=== PATIENT | male | born 1960 | race Caucasian/White ===

== ENCOUNTER 2017-02-10 18:01 | Inpatient (IN) | payer OTHER ==
[~2017-02-10] VITALS: Ht 185.4 cm; Wt 86.9 kg
[2017-02-10 18:47] VITALS: PULSE 81
[2017-02-10 19:44] VITALS: BP 134/74; RESP 18
[2017-02-10 20:00] VITALS: Ht 185.4 cm; Wt 86.9 kg
[2017-02-10 20:18] VITALS: PULSE 76
[2017-02-11] VITALS (13 sets, daily range): BP systolic 116–140; BP diastolic 65–81; PULSE 62–82; RESP 16–19
[2017-02-11] MEDS ORDERED: ALBUTEROL/IPRATROPIUM (NEB) 3 ML AMP HHN PRN (04:30)
[2017-02-11] MEDS ORDERED: morphine 2 MG INJ IV PRN (04:30)
[2017-02-11] MEDS ORDERED: NACL 0.9% 3 ML SYG IV SCH (04:30)
[2017-02-11] MEDS ORDERED: ONDANSETRON 4 MG INJ IV PRN (04:30)
[2017-02-11] MEDS: SOD CHLORIDE 0.9% 1,000 ML IV SCH ×2 (05:08→14:00)
--- NOTE | 2017-02-11 09:46 | HP ---
Date/Time of Note Date/Time of Note DATE: 02/11/17 TIME: 09:32 Assessment/Plan VTE Prophylaxis VTE Prophylaxis Intervention: SCD's Lines/Catheters IV [facility]from [facility] Saline Lock Assessment/Plan Assessment/Plan 1. Acute Hepatitis: alcohol vs drug vs infectious - check labs and calculate DF to determine if steroid is appropriate. If result > 32, then steroid, if not, then Pentoxyfilline - check Hep panel - Obtain MRCP - place GI consult -Need to optimize his nutrition. Need at least 2000calories/day 2. Substance Abuse: meth, etoh -SW to help with abstinence 3. Hyperglycemia - check A1c -insulin-while in house HPI/ROS Admit Date/Time Admit Date/Time Feb 10, 2017 at 18:29 Hx of Present Illness This is a 56 yo male with hx of substance abuse, including meth and alcohol who initiallyt presented to outside hospital c/o generalized body pain, cramps, abd pain and weakness. He said he quit using meth 6 months ago, but 4 days ago he used what he thought was meth. Since then, he has been feeling above mentioned symptoms. He also has been vomiting daily and as a result has not been eating. He thinks what he smoked was not meth, but "poison". At outside hospital, LFTs were elevated in high 100s. He was transferred to [facility] for insurance reasons. He said he drinks 2 to 3 cans of beer everyday. Patient is in house arrest and has a brace on his left leg. . PMH/Family/Social Social History Smoking Status: Current every day smoker Exam/Review of Systems Vital Signs Vitals Vital Signs Date Time Temp Pulse Resp B/P Pulse Ox O2 Delivery O2 Flow Rate FiO2 02/11/17 08:31 67 02/11/17 07:50 98.4 16 117/76 91 Intake and Output 02/10/17 02/10/17 02/11/17 15:00 23:00 07:00 Intake Total 1600 ml Output Total 800 ml Balance 800 ml Exam Constitutional: alert, oriented Head: atraumatic, normocephalic Respiratory: clear to auscultation, normal air movement Cardiovascular: nl pulses, regular rate and rhythm Gastrointestinal: soft, tender Extremities: normal pulses Labs Result Diagram: 02/11/17 0046 02/11/17 0046 Medications Medications Current Medications Ondansetron HCl (Zofran Inj) 4 mg Q6H PRN IV NAUSEA AND/OR VOMITING; Start at 04:30 Morphine Sulfate 2 mg 2 mg Q4H PRN IV SEVERE PAIN LEVEL 7-10; Start 02/11/17 at 04:30 Sodium Chloride (NS) 1,000 ml @ 100 mls/hr Q10H IV Last administered on t 05:08; Admin Dose 100 MLS/HR; Start 02/11/17 at 04:30; Stop 02/11/17 at 23:00 FELIPE VÁSQUEZ MD Feb 11, 2017 09:44
--- NOTE | 2017-02-11 12:51 | PN ---
Date/Time of Note Date/Time of Note DATE: 02/11/17 TIME: 12:46 Assessment/Plan VTE Prophylaxis VTE Prophylaxis Intervention: SCD's Lines/Catheters IV Catheter Type (from Nrs): Saline Lock Assessment/Plan Assessment/Plan 1. Acute Hepatitis: alcohol vs drug vs infectious, follow up with LFTs and hepatitis panel 2. Substance Abuse: meth, etoh, tobacco, SW to help with abstinence 3. DM, diabetic diet, A1c 6.8 Subjective 24 Hr Interval Summary Free Text/Dictation generalized body ache Exam/Review of Systems Vital Signs Vitals Vital Signs Date Time Temp Pulse Resp B/P Pulse Ox O2 Delivery O2 Flow Rate FiO2 02/11/17 12:24 62 02/11/17 12:01 97.7 16 125/65 91 Intake and Output 02/10/17 02/10/17 02/11/17 15:00 23:00 07:00 Intake Total 1600 ml Output Total 800 ml Balance 800 ml Exam Constitutional: alert, oriented, well developed Psych: nl mood/affect, no complaints Head: atraumatic, normocephalic Eyes: EOMI, PERRL, nl conjunctiva, nl lids, nl sclera ENMT: nl external ears & nose, nl lips & teeth, nl nasal mucosa & septum Neck: non-tender, supple Respiratory: clear to auscultation, normal air movement, No congested cough, No crackles/rales, No diminished breath sounds, No intercostal retraction, No labored breathing, No other, No respirations, No tactile fremitus, No wheezing Cardiovascular: nl pulses, regular rate and rhythm, No S3, No S4, No bruits, No diastolic murmur, No edema, No gallop, No irregular rhythm, No jugular venous distention (JVD), No murmurs/extra sounds, No other, No rub, No systolic murmur Gastrointestinal: non-tender, soft, No ascites, No bowel sounds, No distended, No firm, No hepatomegaly, No mass , No other, No rebound or guarding, No splenomegaly, No surgical scars, No tender Musculoskeletal: nl extremities to inspection Extremities: normal pulses, No calf tenderness, No clubbing, No cyanosis, No edema, No other, No palpable cord, No pitting pedal edema, No tenderness Neurological: RECREATION SUPERINTENDENT II-XII intact, nl mental status, nl speech, nl strength Results Result Diagram: 02/11/1733 02/11/1733 Results 24 hrs Laboratory Tests Test 02/11/17 00:46 02/11/17 09:33 02/11/17 10:32 White Blood Count 7.7 7.0 Red Blood Count 5.20 5.12 Hemoglobin 17.0 16.6 Hematocrit 49.5 49.3 Mean Corpuscular Volume 95.2 96.3 Mean Corpuscular Hemoglobin 32.7 32.4 Mean Corpuscular Hemoglobin Concent 34.3 33.7 Red Cell Distribution Width 12.7 12.6 Platelet Count 144 135 L Mean Platelet Volume 10.0 10.3 Neutrophils % 77.0 78.4 H Lymphocytes % 11.9 L 10.3 L Monocytes % 9.4 8.7 Eosinophils % 1.0 1.9 Basophils % 0.4 0.4 Nucleated Red Blood Cells % 0.0 0.0 Neutrophils # 5.9 5.5 Lymphocytes # 0.9 0.7 L Monocytes # 0.7 0.6 Eosinophils # 0.1 0.1 Basophils # 0.0 0.0 Nucleated Red Blood Cells # 0.0 0.0 Sodium Level 133 L 135 Potassium Level 4.5 4.8 Chloride Level 94 L 96 L Carbon Dioxide Level 33 H 33 H Anion Gap 11 11 Blood Urea Nitrogen 51 H 39 #H Creatinine 1.21 0.91 Glucose Level 236 H 255 H Calcium Level 8.7 8.3 L Phosphorus Level 3.6 2.8 Magnesium Level 2.7 H 2.4 Total Bilirubin 0.9 1.1 Direct Bilirubin 0.00 0.00 Indirect Bilirubin 0.9 1.1 Aspartate Amino Transf (AST/SGOT) 871 H 911 H Alanine Aminotransferase (ALT/SGPT) 438 H 461 H Alkaline Phosphatase 87 84 Total Protein 7.4 6.9 Albumin 3.9 4.1 Globulin 3.50 H 2.80 Albumin/Globulin Ratio 1.11 1.46 Hepatitis B Surface Antigen Pending Hepatitis B Surface Antibody NEGATIVE Hepatitis C Antibody Pending Prothrombin Time 13.5 Prothrombin Time Ratio 1.1 INR International Normalized Ratio 1.03 Activated Partial Thromboplast Time 23.3 L Hemoglobin A1c 6.8 H Medications Medications Current Medications Ondansetron HCl (Zofran Inj) 4 mg Q6H PRN IV NAUSEA AND/OR VOMITING; Start at 04:30 Morphine Sulfate 2 mg 2 mg Q4H PRN IV SEVERE PAIN LEVEL 7-10; Start 02/11/17 at 04:30 Sodium Chloride (NS) 1,000 ml @ 100 mls/hr Q10H IV Last administered on t 05:08; Admin Dose 100 MLS/HR; Start 02/11/17 at 04:30; Stop 02/11/17 at 23:00 SUZANNE SANCHEZ MD Feb 11, 2017 12:51
[2017-02-11] MEDS ORDERED: GLUCOSE GEL 15 GRAM TUBE PO PRN ×2 (13:30)
[2017-02-11] MEDS ORDERED: DEXTROSE 50% 50 ML SYRINGE IV PRN ×2 (13:30)
[2017-02-11] MEDS ORDERED: GLUCOSE GEL 15 GRAM TUBE BUCCAL PRN (13:30)
[2017-02-11] MEDS ORDERED: GLUCAGON 1 MG INJ IM PRN (13:30)
[2017-02-11] MEDS: INSULIN ASPART [NOVOLOG] 3 ML PEN SC SCH ×2 (18:07→23:21)
[2017-02-11] MEDS: INSULIN GLARGINE [LANtus] 3 ML PEN SC SCH (22:05)
[2017-02-11] MEDS ORDERED: INSULIN ASPART [NOVOLOG] 3 ML PEN SC ONE (23:00)
[2017-02-12] VITALS (12 sets, daily range): BP systolic 117–136; BP diastolic 61–83; PULSE 45–66; RESP 18
[2017-02-12] MEDS: ACCU-CHEK XX SCH (01:27)
[2017-02-12] MEDS: INSULIN ASPART [NOVOLOG] 3 ML PEN SC SCH ×4 (08:09→20:53)
--- NOTE | 2017-02-12 11:08 | PN ---
Date/Time of Note Date/Time of Note DATE: 02/12/17 TIME: 11:06 Assessment/Plan VTE Prophylaxis VTE Prophylaxis Intervention: SCD's Lines/Catheters IV [facility] Saline Lock Assessment/Plan Chief Complaint/Hosp Course Assessment and plan 1. Acute hepatitis. Patient with positive hepatitis C serology. Also patient is a known alcohol drinker. Cessation of alcohol advised. Monitor LFT. Await for downward trend. GI consult to follow pending clinical course. 2. History of substance abuse with methamphetamines and alcohol. Cessation was advised. house worker to follow. 3. Diabetes. A1c at 6.8. Continue insulin regimen. Await for improvement. Disposition and plan: Follow-up with LFT. Wait for downward trend. Credit Officer consultation to follow pending clinical course. Discussed plan of care with Dr. Stevens Problems: Subjective 24 Hr Interval Summary Free Text/Dictation Less reported abdominal pain at this time. Exam/Review of Systems Vital Signs Vitals Vital Signs Date Time Temp Pulse Resp B/P Pulse Ox O2 Delivery O2 Flow Rate FiO2 02/12/17 08:20 54 02/12/17 08:00 98.0 18 136/83 92 Intake and Output 02/11/17 02/11/17 02/12/17 15:00 23:00 07:00 Intake Total 1750 ml 500 ml Output Total 950 ml 1800 ml 1100 ml Balance -950 ml -50 ml -600 ml Exam Constitutional: alert, oriented Psych: nl mood/affect Head: normocephalic Eyes: nl conjunctiva Respiratory: clear to auscultation, normal air movement Cardiovascular: regular rate and rhythm Gastrointestinal: soft, tender (Minimally) Musculoskeletal: nl extremities to inspection Extremities: normal pulses Neurological: SUPERVISOR SMALL APPLIANCE ASSEMBLY II-XII intact, nl mental status, nl speech Results Result Diagram: 02/12/17 0655 02/12/17 0655 Results 24 hrs Laboratory Tests Test 02/11/17 18:01 02/11/17 21:53 02/12/17 01:20 02/12/17 06:55 Bedside Glucose 353 H 305 H 116 White Blood Count 5.2 # Red Blood Count 4.91 Hemoglobin 16.3 Hematocrit 48.1 Mean Corpuscular Volume 98.0 Mean Corpuscular Hemoglobin 33.2 H Mean Corpuscular Hemoglobin Concent 33.9 Red Cell Distribution Width 12.4 Platelet Count 100 #L Mean Platelet Volume 10.0 Neutrophils % 68.7 Lymphocytes % 16.7 Monocytes % 9.7 Eosinophils % 3.9 Basophils % 0.6 Nucleated Red Blood Cells % 0.0 Neutrophils # 3.6 Lymphocytes # 0.9 Monocytes # 0.5 Eosinophils # 0.2 Basophils # 0.0 Nucleated Red Blood Cells # 0.0 Sodium Level 139 Potassium Level 4.5 Chloride Level 100 Carbon Dioxide Level 33 H Anion Gap 11 Blood Urea Nitrogen 19 # Creatinine 0.75 Glucose Level 149 # Calcium Level 8.4 Phosphorus Level 2.8 Magnesium Level 2.1 Test 02/12/17 08:00 Bedside Glucose 168 Medications Medications Current Medications Ondansetron HCl (Zofran Inj) 4 mg Q6H PRN IV NAUSEA AND/OR VOMITING; Start at 04:30 Morphine Sulfate (morphine) 2 mg Q4H PRN IV SEVERE PAIN LEVEL 7-10; Start at 04:30 Diagnostic Test (Pha) (Accu-Chek) 1 ea 02 XX Last administered on 02/12/17 01 :27; Admin Dose 1 EA; Start 02/12/17 at 02:00 Miscellaneous Information 1 ea NOTE XX ; Start 02/11/17 at 13:30 Glucose (Glutose) 15 gm Q15M PRN PO DECREASED GLUCOSE; Start 02/11/17 at 13:30 Glucose (Glutose) 22.5 gm Q15M PRN PO DECREASED GLUCOSE; Start 02/11/17 at 13: 30 Dextrose (D50w Syringe) 25 ml Q15M PRN IV DECREASED GLUCOSE; Start 02/11/17 at 13:30 Dextrose (D50w Syringe) 50 ml Q15M PRN IV DECREASED GLUCOSE; Start 02/11/17 at 13:30 Glucagon (Glucagen) 1 mg Q15M PRN IM DECREASED GLUCOSE; Start 02/11/17 at 13: 30 Glucose (Glutose) 15 gm Q15M PRN BUCCAL DECREASED GLUCOSE; Start 02/11/17 at 13:30 Insulin Glargine (Lantus) 15 unit HS SC Last administered on 02/11/17 22:05; Admin Dose 15 UNIT; Start 02/11/17 at 21:00 STEPHEN ALEXANDER Feb 12, 2017 11:08
[2017-02-12] MEDS: INSULIN GLARGINE [LANtus] 3 ML PEN SC SCH (20:51)
[2017-02-13] VITALS (11 sets, daily range): BP systolic 114–145; BP diastolic 71–82; PULSE 51–60; RESP 16–19
[2017-02-13] MEDS: PENTOXIFYLLINE (SR) 400 MG TAB PO SCH ×4 (00:15→21:42)
[2017-02-13] MEDS: ACCU-CHEK XX SCH (01:27)
--- NOTE | 2017-02-13 07:48 | RADRPT ---
PROCEDURE: MRCP. CLINICAL INDICATION: Elevated liver function tests. TECHNIQUE: MRI abdomen without contrast and MRCP was performed. The following sequences were obt ained: Three plane gradient echo localizers, coronal gradient echo images, breath hold axial T2-spencer ghted fat saturation images, coronal T2-weighted images, axial 3-D LAVA images, axial T2-weighted br eath hold fast spin echo images, axial gradient echo T1-weighted in phase and out of phase images, a xial diffusion weighted images, and 3-D coronal rotating MIP images of the biliary tree. COMPARISON: None available FINDINGS: The liver is normal in size. There is normal signal intensity within the liver. There is no focal hepatic lesion. The spleen is normal in size and homogeneous in signal intensity. There are no gallstones in the gallbladder. The biliary tree is not dilated. No intrahepatic nor extrahepatic biliary dilatation is present. The pancreatic duct is grossly normal. The adrenals are normal with no enlargement or mass. There is a 1 cm nodule superiorly in the right kidney posteriorly consistent with a hemorrhagic cyst . The kidneys are otherwise grossly normal. The abdominal aorta is not dilated. IMPRESSION: 1. Hemorrhagic cyst in the right kidney measuring 1 cm. 2. Normal appearance of the liver. 3. Unremarkable MRCP. RPTAT: QQ .Trent Harden MD, MD Date Time Electronically viewed and signed by .Trent Harden MD, on 02/13/2017 07:47 .R/
[2017-02-13] MEDS: INSULIN ASPART [NOVOLOG] 3 ML PEN SC SCH ×4 (08:08→21:55)
--- NOTE | 2017-02-13 13:02 | PN ---
Date/Time of Note Date/Time of Note DATE: 02/13/17 TIME: 12:59 Assessment/Plan VTE Prophylaxis VTE Prophylaxis Intervention: SCD's Lines/Catheters IV Catheter Type (from [facility]): Saline Lock Assessment/Plan Chief Complaint/Hosp Course Assessment and plan 1. Acute hepatitis. Patient with positive hepatitis C serology. Also patient is a known alcohol drinker. Cessation of alcohol advised. Monitor LFT. monitor downward trend. . GI consult to follow pending clinical course. 2. History of substance abuse with methamphetamines and alcohol. Cessation was advised. viscose department worker to follow. 3. Diabetes. A1c at 6.8. Continue insulin regimen. Disposition and plan: LFT with first sign of downward trend. continue to monitor. Will check one more LFT prior to d/c if continues to downward trend will plan for d/c. Discussed with Dr. Stevens Discussed plan of care with Dr. Stevens Problems: Subjective 24 Hr Interval Summary Free Text/Dictation denies any abdominal pain today. improved from yesterday Exam/Review of Systems Vital Signs Vitals Vital Signs Date Time Temp Pulse Resp B/P Pulse Ox O2 Delivery O2 Flow Rate FiO2 02/13/17 12:54 53 02/13/17 12:10 98.2 18 128/71 97 Intake and Output 02/12/17 02/12/17 02/13/17 15:00 23:00 07:00 Intake Total 600 ml Balance 600 ml Exam Constitutional: alert, oriented Psych: nl mood/affect Head: normocephalic Eyes: nl conjunctiva Respiratory: clear to auscultation, normal air movement Cardiovascular: regular rate and rhythm Gastrointestinal: soft, nontender Musculoskeletal: nl extremities to inspection Extremities: normal pulses Neurological: IMAGERY INTELLIGENCE II-XII intact, nl mental status, nl speech Results Result Diagram: 02/13/1736 02/13/1736 Results 24 hrs Laboratory Tests Test 02/12/17 17:00 02/12/17 20:48 02/13/17 01:19 02/13/17 07:36 Bedside Glucose 130 204 166 White Blood Count 5.2 Red Blood Count 5.08 Hemoglobin 16.2 Hematocrit 49.2 Mean Corpuscular Volume 96.9 Mean Corpuscular Hemoglobin 31.9 Mean Corpuscular Hemoglobin Concent 32.9 Red Cell Distribution Width 12.6 Platelet Count 105 L Mean Platelet Volume 10.1 Neutrophils % 65.1 Lymphocytes % 19.2 Monocytes % 10.3 Eosinophils % 4.4 Basophils % 0.6 Nucleated Red Blood Cells % 0.0 Neutrophils # 3.4 Lymphocytes # 1.0 Monocytes # 0.5 Eosinophils # 0.2 Basophils # 0.0 Nucleated Red Blood Cells # 0.0 Sodium Level 138 Potassium Level 4.4 Chloride Level 99 Carbon Dioxide Level 34 H Anion Gap 9 Blood Urea Nitrogen 20 Creatinine 0.79 Glucose Level 146 Calcium Level 8.6 Total Bilirubin 0.9 Direct Bilirubin 0.00 Indirect Bilirubin 0.9 Aspartate Amino Transf (AST/SGOT) 737 H Alanine Aminotransferase (ALT/SGPT) 549 H Alkaline Phosphatase 76 Total Protein 6.2 Albumin 3.6 Globulin 2.60 Albumin/Globulin Ratio 1.38 Test 02/13/17 08:04 02/13/17 11:48 Bedside Glucose 161 148 Medications Medications Current Medications Ondansetron HCl (Zofran Inj) 4 mg Q6H PRN IV NAUSEA AND/OR VOMITING; Start at 04:30 Morphine Sulfate (morphine) 2 mg Q4H PRN IV SEVERE PAIN LEVEL 7-10; Start at 04:30 Diagnostic Test (Pha) (Accu-Chek) 1 ea 02 XX Last administered on 02/13/17 01 :27; Admin Dose 1 EA; Start 02/12/17 at 02:00 Miscellaneous Information 1 ea NOTE XX ; Start 02/11/17 at 13:30 Glucose (Glutose) 15 gm Q15M PRN PO DECREASED GLUCOSE; Start 02/11/17 at 13:30 Glucose (Glutose) 22.5 gm Q15M PRN PO DECREASED GLUCOSE; Start 02/11/17 at 13: 30 Dextrose (D50w Syringe) 25 ml Q15M PRN IV DECREASED GLUCOSE; Start 02/11/17 at 13:30 Dextrose (D50w Syringe) 50 ml Q15M PRN IV DECREASED GLUCOSE; Start 02/11/17 at 13:30 Glucagon (Glucagen) 1 mg Q15M PRN IM DECREASED GLUCOSE; Start 02/11/17 at 13: 30 Glucose (Glutose) 15 gm Q15M PRN BUCCAL DECREASED GLUCOSE; Start 02/11/17 at 13:30 Insulin Glargine (Lantus) 15 unit HS SC Last administered on 02/12/17 20:51; Admin Dose 15 UNIT; Start 02/11/17 at 21:00 Pentoxifylline (Trental) 400 mg TID PO Last administered on 02/13/17 12:17; Admin Dose 400 MG; Start 02/13/17 at 00:00 STEPHEN ALEXANDER Feb 13, 2017 13:02
[2017-02-13] MEDS ORDERED: ZOLPIDEM 5 MG TAB PO PRN (19:30)
[2017-02-13] MEDS: NICOTINE (21 MG/24 HR) PATCH TRANSDERM SCH (21:51)
[2017-02-13] MEDS: INSULIN GLARGINE [LANtus] 3 ML PEN SC SCH (21:55)
[2017-02-14] MEDS: ACCU-CHEK XX SCH (02:00)
[2017-02-14 03:23] VITALS: BP 130/79; RESP 16
[2017-02-14] MEDS: INSULIN ASPART [NOVOLOG] 3 ML PEN SC SCH ×3 (08:00→17:16)
[2017-02-14 08:11] VITALS: BP 137/62; RESP 18
[2017-02-14] MEDS: PENTOXIFYLLINE (SR) 400 MG TAB PO SCH ×2 (08:44→11:58)
[2017-02-14] MEDS: NICOTINE (21 MG/24 HR) PATCH TRANSDERM SCH (08:44)
[2017-02-14 14:02] VITALS: BP 131/84; RESP 18
--- NOTE | 2017-02-14 15:35 | PDOCDIS ---
Discharge Instructions DIAGNOSIS Discharge Diagnosis Hepatitis. Diabetes mellitus. Newly diagnosis. CONDITION Patient Condition: Stable HOME CARE INSTRUCTIONS: Special Diet: Carbohydrate controlled. OTHER ORDERS: Other Orders: 1. Take medications as per prescription. 2. Follow a carbohydrate controlled diet. 3. Follow-up with outpatient gastroenterology. Arrange with insurance for outpatient gastroenterology follow-up. 4. Abstain from using alcohol and illicit drugs. NADJA KEARNEY NP Feb 14, 2017 15:35
[2017-02-14] MEDS ORDERED: GLIP5TAB13 PO (15:38)
[2017-02-14] MEDS ORDERED: LORA0.5T PO (15:45)
[2017-02-14] MEDS ORDERED: NICO1PAT6 TRANSDERM ×2 (15:49→15:53)
--- NOTE | 2017-02-14 18:03 | DS ---
Date/Time of Note Date/Time of Note DATE: 02/14/17 TIME: 18:03 Discharge Summary Admission/Discharge Info Admit Date/Time Feb 10, 2017 at 18:29 Discharge Date/Time Discharge Diagnosis 1. Acute hepatitis. Alcohol induced versus drug-induced versus infectious. 2. Hepatitis C antibody positive. HCV RNA pending at this time. 3. Type 2 diabetes mellitus. Newly diagnosed. 4. Polysubstance abuse. 5. Nicotine use. Patient Condition: Stable Procedures MRCP IMPRESSION: 1. Hemorrhagic cyst in the right kidney measuring 1 cm. 2. Normal appearance of the liver. 3. Unremarkable MRCP. Hx of Present Illness This is a 56 yo male with hx of substance abuse, including meth and alcohol who initially presented to outside hospital c/o generalized body pain, cramps, abd pain and weakness. He said he quit using meth 6 months ago, but 4 days ago he used what he thought was meth. He also has been vomiting daily and as a result has not been eating. At the outside hospital, LFTs were elevated in high 100s. He was transferred to [facility] for insurance reasons. He said he drinks 2 to 3 cans of beer everyday. Patient is in house arrest and has a brace on his left leg. . Hospital Course The patient's condition was extensively evaluated. The patient's MRCP was negative for any choledocholithiasis. The patient's underlying hepatitis could be multifactorial including underlying alcohol and drug abuse. The patient's hepatitis C antibody was positive too. The patient's hepatitis C RNA is pending at this time. Hepatotoxic drugs were avoided. The patient's LFTs are trending down. The patient did not have any significant hyperbilirubinemia. The patient was noticed to have very high blood sugars during the hospitalization. Consequently, he was started on sliding scale insulin. The patient's hemoglobin A1c was found to be 6.8. The patient was newly diagnosed with type 2 diabetes mellitus. The patient was seen and evaluated by the online producer. The patient is not an ideal candidate for metformin therapy because of underlying alcohol abuse and underlying transaminitis. Hence the patient will be discharged home on sulfonylureas. The patient is a current substance abuser including the use of nicotine. The patient was provided with a nicotine patch. Upon discharge, the patient will be discharged on tapering dose of transdermal nicotine. The patient was advised multiple times on the importance of quitting the use of recreational drugs. The patient was seen by social scientist during this hospitalization. The patient had a stable hospital course. The patient is stable to be discharged home to be followed up with outpatient gastroenterology (case management consult put in). Discharge Instructions 1. Take medications as per prescription. 2. Follow a carbohydrate controlled diet. 3. Follow-up with outpatient gastroenterology. Arrange with insurance for outpatient gastroenterology follow-up. 4. Abstain from using alcohol and illicit drugs. The patient verbalized understanding of his discharge instructions. Case discussed with Dr. Gomez. Home Meds Active Scripts Nicotine* (Nicotine* Patch) 21 mg/day Patch, 1 PATCH TRANSDERM DAILY for 48 Days , #48 Nicotine 21 mg patch daily 6 weeks, then Nicotine 14 mg patch daily 2 weeks, then Nicotine 7 mg patch daily 2 weeks. Prov:NADJA KAERNEY NP 02/14/17 Lorazepam* (Lorazepam*) 0.5 Mg Tablet, 0.5 MG PO Q8 Y for ANXIETY, #14 TAB Prov:NADJA KEARNEY NP 02/14/17 Glipizide* (Glipizide*) 5 Mg Tablet, 5 MG PO AC BREAKFAST for 30 Days, #30 TAB Prov:NADJA KEARNEY NP 02/14/17 Follow-up Plan Follow-up with outpatient gastroenterology [Case management consult has been ordered for authorization for outpatient gastroenterology follow-up]. Primary Care Provider [facility] Pending Labs Laboratory Tests Test 02/13/17 21:53 02/14/17 02:16 02/14/17 05:26 02/14/17 07:59 Bedside Glucose 188mg/dL (70-220) 119mg/dL (70-220) 138mg/dL (70-220) White Blood Count 5.610^3/ul (4.8-10.8) Red Blood Count 4.9410^6/ul (4.70-6.10) Hemoglobin 15.7g/dl (14.0-18.0) Hematocrit 47.7% (42.0-52.0) Mean Corpuscular Volume 96.6fl (82.0-101.0) Mean Corpuscular Hemoglobin 31.8pg (29.0-33.0) Mean Corpuscular Hemoglobin Concent 32.9g/dl (32.0-37.0) Red Cell Distribution Width 12.4% (11.5-14.5) Platelet Count 61100^3/UL (140-415) Mean Platelet Volume 9.9fl (7.4-10.4) Neutrophils % 66.2% (39.0-77.0) Lymphocytes % 18.7% (15.0-51.0) Monocytes % 8.4% (0.0-11.0) Eosinophils % 5.5% (0.0-7.0) Basophils % 0.7% (0.0-2.0) Nucleated Red Blood Cells % 0.0/100WBC (0.0-0.0) Neutrophils # 3.710^3/ul (1.6-7.5) Lymphocytes # 1.110^3/ul (0.8-2.9) Monocytes # 0.510^3/ul (0.3-0.9) Eosinophils # 0.310^3/ul (0.0-0.5) Basophils # 0.010^3/ul (0.0-0.1) Nucleated Red Blood Cells # 0.010^3/ul (0.0-0.0) Sodium Level 140mmol/L (135-144) Potassium Level 4.1mmol/L (3.5-5.1) Chloride Level 104mmol/L (97-110) Carbon Dioxide Level 32mmol/L (21-31) Anion Gap 8 (8-16) Blood Urea Nitrogen 17mg/dl (7-20) Creatinine 0.76mg/dl (0.61-1.24) Glucose Level 122mg/dl (70-220) Calcium Level 8.6mg/dl (8.4-10.2) Total Bilirubin 0.7mg/dl (0.2-1.3) Direct Bilirubin 0.00mg/dl (0.00-0.20) Indirect Bilirubin 0.7mg/dl (0-1.1) Aspartate Amino Transf (AST/SGOT) 579IU/L (15-46) Alanine Aminotransferase (ALT/SGPT) 503IU/L (13-69) Alkaline Phosphatase 69IU/L (42-121) Total Protein 6.1g/dl (6.1-8.1) Albumin 3.0g/dl (3.3-4.9) Globulin 3.10g/dl (1.3-3.2) Albumin/Globulin Ratio 0.96 Triglycerides Level 63mg/dl (0-149) Cholesterol Level 114mg/dl (100-200) LDL Cholesterol, Calculated 75mg/dl HDL Cholesterol 26mg/dl (28-71) Cholesterol/HDL Ratio 4.3RATIO Test 02/14/17 11:54 02/14/17 17:13 Bedside Glucose 141mg/dL (70-220) 172mg/dL (70-220) NADJA KEARNEY NP Feb 14, 2017 18:03
--- NOTE | 2017-02-14 18:03 | DS ---
Date/Time of Note Date/Time of Note DATE: 02/14/17 TIME: 18:03 Discharge Summary Admission/Discharge Info Admit Date/Time Feb 10, 2017 at 18:29 Discharge Date/Time Discharge Diagnosis 1. Acute hepatitis. Alcohol induced versus drug-induced versus infectious. 2. Hepatitis C antibody positive. HCV RNA pending at this time. 3. Type 2 diabetes mellitus. Newly diagnosed. 4. Polysubstance abuse. 5. Nicotine use. Patient Condition: Stable Procedures MRCP IMPRESSION: 1. Hemorrhagic cyst in the right kidney measuring 1 cm. 2. Normal appearance of the liver. 3. Unremarkable MRCP. Hx of Present Illness This is a 56 yo male with hx of substance abuse, including meth and alcohol who initially presented to outside hospital c/o generalized body pain, cramps, abd pain and weakness. He said he quit using meth 6 months ago, but 4 days ago he used what he thought was meth. He also has been vomiting daily and as a result has not been eating. At the outside hospital, LFTs were elevated in high 100s. He was transferred to [facility] for insurance reasons. He said he drinks 2 to 3 cans of beer everyday. Patient is in house arrest and has a brace on his left leg. . Hospital Course The patient's condition was extensively evaluated. The patient's MRCP was negative for any choledocholithiasis. The patient's underlying hepatitis could be multifactorial including underlying alcohol and drug abuse. The patient's hepatitis C antibody was positive too. The patient's hepatitis C RNA is pending at this time. Hepatotoxic drugs were avoided. The patient's LFTs are trending down. The patient did not have any significant hyperbilirubinemia. The patient was noticed to have very high blood sugars during the hospitalization. Consequently, he was started on sliding scale insulin. The patient's hemoglobin A1c was found to be 6.8. The patient was newly diagnosed with type 2 diabetes mellitus. The patient was seen and evaluated by the tongue and groove machine feeder. The patient is not an ideal candidate for metformin therapy because of underlying alcohol abuse and underlying transaminitis. Hence the patient will be discharged home on sulfonylureas. The patient is a current substance abuser including the use of nicotine. The patient was provided with a nicotine patch. Upon discharge, the patient will be discharged on tapering dose of transdermal nicotine. The patient was advised multiple times on the importance of quitting the use of recreational drugs. The patient was seen by social media analyst during this hospitalization. The patient had a stable hospital course. The patient is stable to be discharged home to be followed up with outpatient gastroenterology (case management consult put in). Discharge Instructions 1. Take medications as per prescription. 2. Follow a carbohydrate controlled diet. 3. Follow-up with outpatient gastroenterology. Arrange with insurance for outpatient gastroenterology follow-up. 4. Abstain from using alcohol and illicit drugs. The patient verbalized understanding of his discharge instructions. Case discussed with Dr. Gomez. Home Meds Active Scripts Nicotine* (Nicotine* Patch) 21 mg/day Patch, 1 PATCH TRANSDERM DAILY for 48 Days , #48 Nicotine 21 mg patch daily 6 weeks, then Nicotine 14 mg patch daily 2 weeks, then Nicotine 7 mg patch daily 2 weeks. Prov:NADJA KEARNEY NP 02/14/17 Lorazepam* (Lorazepam*) 0.5 Mg Tablet, 0.5 MG PO Q8 Y for ANXIETY, #14 TAB Prov:NADJA KEARNEY NP 02/14/17 Glipizide* (Glipizide*) 5 Mg Tablet, 5 MG PO AC BREAKFAST for 30 Days, #30 TAB Prov:NADJA KEARNEY NP 02/14/17 Follow-up Plan Follow-up with outpatient gastroenterology [Case management consult has been ordered for authorization for outpatient gastroenterology follow-up]. Primary Care Provider [facility] Pending Labs Laboratory Tests Test 02/13/17 21:53 02/14/17 02:16 02/14/17 05:26 02/14/17 07:59 Bedside Glucose 188mg/dL (70-220) 119mg/dL (70-220) 138mg/dL (70-220) White Blood Count 5.610^3/ul (4.8-10.8) Red Blood Count 4.9410^6/ul (4.70-6.10) Hemoglobin 15.7g/dl (14.0-18.0) Hematocrit 47.7% (42.0-52.0) Mean Corpuscular Volume 96.6fl (82.0-101.0) Mean Corpuscular Hemoglobin 31.8pg (29.0-33.0) Mean Corpuscular Hemoglobin Concent 32.9g/dl (32.0-37.0) Red Cell Distribution Width 12.4% (11.5-14.5) Platelet Count 52441^3/UL (140-415) Mean Platelet Volume 9.9fl (7.4-10.4) Neutrophils % 66.2% (39.0-77.0) Lymphocytes % 18.7% (15.0-51.0) Monocytes % 8.4% (0.0-11.0) Eosinophils % 5.5% (0.0-7.0) Basophils % 0.7% (0.0-2.0) Nucleated Red Blood Cells % 0.0/100WBC (0.0-0.0) Neutrophils # 3.710^3/ul (1.6-7.5) Lymphocytes # 1.110^3/ul (0.8-2.9) Monocytes # 0.510^3/ul (0.3-0.9) Eosinophils # 0.310^3/ul (0.0-0.5) Basophils # 0.010^3/ul (0.0-0.1) Nucleated Red Blood Cells # 0.010^3/ul (0.0-0.0) Sodium Level 140mmol/L (135-144) Potassium Level 4.1mmol/L (3.5-5.1) Chloride Level 104mmol/L (97-110) Carbon Dioxide Level 32mmol/L (21-31) Anion Gap 8 (8-16) Blood Urea Nitrogen 17mg/dl (7-20) Creatinine 0.76mg/dl (0.61-1.24) Glucose Level 122mg/dl (70-220) Calcium Level 8.6mg/dl (8.4-10.2) Total Bilirubin 0.7mg/dl (0.2-1.3) Direct Bilirubin 0.00mg/dl (0.00-0.20) Indirect Bilirubin 0.7mg/dl (0-1.1) Aspartate Amino Transf (AST/SGOT) 579IU/L (15-46) Alanine Aminotransferase (ALT/SGPT) 503IU/L (13-69) Alkaline Phosphatase 69IU/L (42-121) Total Protein 6.1g/dl (6.1-8.1) Albumin 3.0g/dl (3.3-4.9) Globulin 3.10g/dl (1.3-3.2) Albumin/Globulin Ratio 0.96 Triglycerides Level 63mg/dl (0-149) Cholesterol Level 114mg/dl (100-200) LDL Cholesterol, Calculated 75mg/dl HDL Cholesterol 26mg/dl (28-71) Cholesterol/HDL Ratio 4.3RATIO Test 02/14/17 11:54 02/14/17 17:13 Bedside Glucose 141mg/dL (70-220) 172mg/dL (70-220) NADJA KEARNEY NP Feb 14, 2017 18:03
[2017-02-15] MEDS ORDERED: NICOTINE (21 MG/24 HR) PATCH TRANSDERM SCH (09:00)
== END 2017-02-14 18:30 | disposition home or self-care (01) | DRG 434 ==
LOC: MS4 18:29 → PP2 02-13 18:30
PROVIDERS: ADMIT Internal Medicine; ATTEND Internal Medicine
DX: K70.10 Alcoholic hepatitis without ascites (principal); N28.1 Cyst of kidney, acquired; B19.20 Unspecified viral hepatitis C without hepatic coma; F19.10 Other psychoactive substance abuse, uncomplicated; F17.200 Nicotine dependence, unspecified, uncomplicated; E11.9 Type 2 diabetes mellitus without complications
CPT/HCPCS: 74181; 80048; 80053; 80061; 80076; 82962; 83036; 83735; 84100; 85025; 85610; 85730; 86706; 86803; 87340; 87522; J1815; J7030